=== PATIENT | male | born 1955 | race Caucasian/White ===

== ENCOUNTER 2017-07-20 05:53 | Day surgery (SDC) | payer BC ==
[~2017-07-20] VITALS: Ht 182.9 cm; Wt 131.5 kg
[~2017-07-20 05:53] MED LIST: ADLT ASA LOW81 MG PO; ADVIL PM1 CAP PO; ADVIL PM1 TAB PO; C 500 PO; CARDURA XL8 MG PO; CELEBREX100 M1 PO; CIPRO500 MG PO; CIPROFLOXACN250 MG PO; CIPROFLOXACN500 MG PO; COQ10200 MG PO; COREG12.5 MG PO; COREG6.25 MG PO; DILAUDID 2MG2 MG/TA1 PO; DILAUDID 2MG2 MG/TAB OR; DILAUDID2 MG OR; DOXAZOSIN8 MG PO; FISH OIL1000 MG PO; FISH OIL1200 M1 PO; GLYB/METFO5 MG/500 M PO; GLYBURIDE5 MG PO; JANUVIA100 MG PO; JANUVIA50 MG PO; KEFLEX500 MG PO; LISINOP/HCTZ1 TA1 PO; LISINOP/HCTZ1 TA2 PO; LISINOPRIL20 MG PO; MOTRIN200 MG PO; MULTIVITAMIN PO; TYLENOL PM OR; TYLENOL PM PO; VITAMIN C500 MG OR; VYTORIN 10/201 TAB PO; calcium PO
[2017-07-20] MEDS ORDERED: PERCOCET1 TA4 PO (09:09)
[2017-07-20 09:40] VITALS: BP 134/64
== END 2017-07-20 09:55 | disposition home or self-care (01) | DRG 489 ==
LOC: ORM 05:53
PROVIDERS: ATTEND Orthopaedic Surgery
PROC: 0SBD4ZZ Excision of Left Knee Joint, Percutaneous Endoscopic Approach (ICD-10-PCS; principal; 2017-07-20)
PROC: 0SBD4ZZ Excision of Left Knee Joint, Percutaneous Endoscopic Approach (ICD-10-PCS; 2017-07-20)
DX: S83.242A Other tear of medial meniscus, current injury, left knee, initial encounter (principal); S83.282A Other tear of lateral meniscus, current injury, left knee, initial encounter; M17.12 Unilateral primary osteoarthritis, left knee; M65.862 Other synovitis and tenosynovitis, left lower leg; M94.262 Chondromalacia, left knee; I10 Essential (primary) hypertension; E11.9 Type 2 diabetes mellitus without complications; X58.XXXA Exposure to other specified factors, initial encounter; Z87.891 Personal history of nicotine dependence; Z85.51 Personal history of malignant neoplasm of bladder

== ENCOUNTER 2018-05-02 14:31 | Inpatient (IN) | payer BC ==
[~2018-05-02] VITALS: Ht 182.9 cm; Wt 136.1 kg
[~2018-05-02 14:31] MED LIST changes: +AFRIN0.05 %; +AMLODIPINE5 MG PO; +PERCOCET1 TA4 PO; +TRESIBA FL100 UNIT/M SC; +VITAMIN D32000 UNIT PO
[2018-05-06] VITALS (8 sets, daily range): BP systolic 137–168; BP diastolic 44–71
[2018-05-07 00:25] VITALS: BP 184/78
[2018-05-07 04:59] VITALS: BP 182/78
[2018-05-07 06:11] LABS: HEMATOCRIT 39.2 % (39.0-50.0); HEMOGLOBIN 12.9 g/dl (14.0-18.0)
[2018-05-07 08:00] VITALS: BP 130/48
[2018-05-07 15:00] VITALS: BP 171/68
[2018-05-07 20:13] VITALS: BP 157/74
[2018-05-08 00:02] VITALS: BP 149/80
[2018-05-08 05:20] VITALS: BP 153/79
[2018-05-08 07:02] LABS: HEMATOCRIT 34.5 % (39.0-50.0); HEMOGLOBIN 11.3 g/dl (14.0-18.0)
[2018-05-08 07:59] VITALS: BP 145/77
[2018-05-08 08:44] VITALS: BP 145/77
== END 2018-05-08 16:31 | disposition home health service (06) | DRG 470 ==
LOC: MS2 05-06 05:43
PROVIDERS: ADMIT Orthopaedic Surgery; ATTEND Internal Medicine Nephrology
PROC: 0SRD0J9 Replacement of Left Knee Joint with Synthetic Substitute, Cemented, Open Approach (ICD-10-PCS; principal; 2018-05-06)
DX: M17.12 Unilateral primary osteoarthritis, left knee (principal); I10 Essential (primary) hypertension; E11.9 Type 2 diabetes mellitus without complications; E78.5 Hyperlipidemia, unspecified; Z79.84 Long term (current) use of oral hypoglycemic drugs
CPT/HCPCS: J0131

== ENCOUNTER → 2018-07-26 | Outpatient (REF) | payer BC ==
[2018-07-26 08:19] LABS: IMMATURE GRANULOCYTES 0.4 % (0.0-5.0); MEAN CELL VOLUME 98.6 fL CALC (80.0-100.0); MEAN CORPUSCULAR HGB 31.9 pG CALC (26.0-32.0); MEAN CORPUSCULAR HGB CONC 32.4 g/L CALC (32.0-36.0); NEUT# 4.36 thou/uL (1.82-7.42); RED BLOOD COUNT 4.2 mill/uL (4.70-6.10); RED CELL DISTRI WIDTH 14.3 % (11.5-15.5)
[2018-07-26 08:24] LABS: HEMATOCRIT 41.4 % (39.0-50.0); HEMOGLOBIN 13.4 g/dl (14.0-18.0)
[2018-07-26 08:34] LABS: ALBUMIN 3.7 g/dL (3.2-5.0); ALKALINE PHOSPHATASE 76 u/l (38-126); ANION GAP 14 (6-22 (CALC)); BILIRUBIN, TOTAL 0.6 mg/dL (0.0-1.4); BUN 22 mg/dL (8-23); BUN/CREATININE RATIO 19 (12-20 (CALC)); CALCULATED LDLCHOLESTEROL 64 mg/dL (62-129 (CALC)); CARBON DIOXIDE 28 mmol/l (22-30); CHLORIDE 103 mmol/l (95-108); CHOLESTEROL HDL RATIO 2.3 (<4.4 (CALC)); CREATININE 1.2 mg/dL (0.7-1.3); GFR > 60 ML/MIN (>=60 (CALC)); GFR FOR AFR.AMER. > 60 ML/MIN (>=60 (CALC)); HDL CHOLESTEROL 61 mg/dL (>=40); POTASSIUM 4.7 mmol/l (3.5-5.1); SGOT/AST 18 u/l (19-48); SODIUM 141 mmol/l (137-146); TOTAL CHOLESTEROL 140 mg/dl (0-199); TOTAL PROTEIN 6.1 g/dL (6.3-8.2); TOTAL TRIGLYCERIDES 75 mg/dl (30-149); VLDL CHOLESTROL 15 mg/dl (4-45 (CALC))
[2018-07-26 08:58] LABS: TSH, 3RD GENERATION 0.13 uIU/mL (0.47 - 4.68)
== END | disposition home or self-care (01) | DRG 700 ==
LOC: LAB 06:30
PROVIDERS: ATTEND Internal Medicine
DX: E11.22 Type 2 diabetes mellitus with diabetic chronic kidney disease (principal); Z12.5 Encounter for screening for malignant neoplasm of prostate

== ENCOUNTER → 2018-08-02 | Outpatient (REF) | payer BC | END | disposition home or self-care (01) | DRG 204 | LOC: DI 08:23 | PROVIDERS: ATTEND Internal Medicine | DX: R05 Cough (principal) ==